=== PATIENT | male | born 1975 | race Two or more races ===

== ENCOUNTER 2017-02-26 17:29 | Emergency (ER) | payer SELFPAY ==
[~2017-02-26] VITALS: Ht 167.6 cm; Wt 90.7 kg
[2017-02-26] MEDS ORDERED: DIPHTH,PERTUSS(ACELL),TET TOX 0.5 ML DISP.SYRIN. VAX IM ONE (18:00)
[2017-02-26] MEDS ORDERED: MORPHINE SULFATE 4 MG/ML DISP.SYRIN. IV/SQ PRN (18:00)
[2017-02-26] MEDS ORDERED: LIDOCAINE 2% 20 ML VIAL. IJ ONE (18:15)
--- NOTE | 2017-02-26 19:00 | PHYS DOC ---
Past Medical History Past Medical History: No Pertinent History Past Surgical History: No Surgical History Alcohol Use: None Drug Use: None Adult General Chief Complaint Chief Complaint: LACERATION HPI HPI Patient is a 41 year old male brought to the ED by a friend with an injury to his left index finger. Patient is right-handed. Patient was working on a motor, which slipped and fell, smashed his left index finger causing a laceration. The patient states he can move and feel his finger. He states the pain is not too bad. He denies other injury. Patient does not speak [place], friend at the bedside speaks both Italian and [place] and translates. Review of Systems Review of Systems Constitutional: Denies fever or chills [] GI: Denies abdominal pain, nausea, vomiting, bloody stools or diarrhea [] Musculoskeletal: Denies other injury except left index finger Integument: Denies other injury Current Medications Current Medications Current Medications Medications (Trade) Dose Ordered Sig/Renetta Start Time Stop Time Status Last Admin Dose Admin Acetaminophen/ Hydrocodone Bitart (Lortab 5/325) 1 tab 1X ONCE 02/26/17 19:45 02/26/17 19:46 Cephalexin HCl (Keflex) 250 mg 1X ONCE 02/26/17 19:45 02/26/17 19:46 Diphtheria/ Tetanus/Acell Pertussis (Boostrix) 0.5 ml ONCE ONCE 02/26/17 18:00 02/26/17 18:01 DC 02/26/17 18:13 0.5 ML Ibuprofen (Motrin) 800 mg 1X ONCE 02/26/17 19:45 02/26/17 19:46 DC Lidocaine HCl 20 ml 1X ONCE 02/26/17 18:15 02/26/17 18:16 DC 02/26/17 18:15 20 ML Morphine Sulfate 4 mg PRN Q15MIN PRN 02/26/17 18:00 02/27/17 17:59 02/26/17 18:04 4 MG Neomycin/ Polymyxin/ Bacitracin (Triple Antibiotic Ointment) 1 pkt 1X ONCE 02/26/17 19:45 02/26/17 19:46 Allergies Allergies Allergies Coded Allergies Type Severity Reaction Last Updated Verified No Known Drug Allergies 02/26/17 No Physical Exam Physical Exam Constitutional: Well developed, well nourished, no acute distress, non-toxic appearance. Alert, ambulatory, mentating normally. HENT: Normocephalic, atraumatic, bilateral external ears normal, nose normal. [ ] Eyes: conjunctiva normal, no discharge. [] Neck: Normal range of motion, no stridor. [] Skin: Warm, dry, no erythema, no rash. [] Extremities: Left hand: There is a crush type laceration along the dorsal aspect of the left index finger from approximately the proximal aspect of the nailbed extending past the proximal aspect of the PIP. The patient is able to actively extend and actively flex his right index finger. He does have sensation to light touch and sharp of the fingertip. The finger is warm with capillary refill less than 2 seconds. Neurologic: Alert and oriented X 3, normal motor function, normal sensory function, no focal deficits noted. [] Current Patient Data Vital Signs Vital Signs Date Time Temp Pulse Resp B/P (MAP) Pulse Ox O2 Delivery O2 Flow Rate FiO2 02/26/17 19:16 64 136/60 (85) 98 Room Air 02/26/17 18:04 18 02/26/17 17:42 97.7 97.7 EKG EKG [] Radiology/Procedures Radiology/Procedures Left index finger x-rays read by me. No acute bony injury, no fracture or dislocation or foreign body seen. Procedure: Repair of left index finger laceration by me Lidocaine 2% plain was used to place a digital block. It was allowed to set up for 15-20 minutes. An additional small amount of lidocaine 2% plain was used to supplement areas that still had sensation. The laceration was irrigated with normal saline using a splash shield. A small amount of fabric debris was treated from the laceration using forceps, from the patient's gloves. The laceration was explored. It is a crush type laceration that is down to the flexor tendon, the flexor tendon is exposed, but does not appear to be injured. I was able to visualize a significant length of the flexor tendon in the base of the laceration and it does appear to be intact. The laceration was sutured with 10 simple interrupted sutures of 4-0 nylon. There were a couple of small areas where the skin had been peeled back and missing but for the most part I was able to approximate all of the tissue adequately. Good result was obtained. The laceration was dressed by nursing staff with antibiotic ointment, nonadherent dressing, and tube gauze. [] Course & Med Decision Making Course & Med Decision Making Pertinent Labs and Imaging studies reviewed. (See chart for details) 41-year-old male right-handed, presents with a crush type injury to his left index finger which has resulted in a laceration. X-rays negative for bony injury. Laceration was repaired and dressed. Patient was given a tetanus shot. We will start him on antibiotics because the laceration was somewhat dirty, he was fixing a car when this happened. See instructions for plan. Patient's friend who is here with him speaks [place] and reads [place] and will be able to help the patient with follow-up instructions. [] Dragon Disclaimer Dragon Disclaimer This electronic medical record was generated, in whole or in part, using a voice recognition dictation system. Departure Departure Impression: Primary Impression: Crushing injury of finger of left hand Additional Impression: Laceration of left index finger Disposition: 01 HOME, SELF-CARE Condition: STABLE Referrals: NO PCP (PCP) LEANDRO LAKHANI II, MD Patient Instructions: Laceration Care, Adult, [place] Additional Instructions: Leave the bandage on and keep it dry for 48 hours. You may then remove the bandage, wash gently, pat dry, and re-bandage with a gauze wrap. Elevate above the level of the heart which will help with pain and swelling. For pain, ibuprofen 800 mg every 8 hours around the clock. This is four over-the -counter 200 mg pills. If needed for more severe pain, hydrocodone as directed. It is okay to combine hydrocodone with ibuprofen. No driving while taking hydrocodone. It is an opiate. It will cause sedation and constipation. Keflex to prevent infection because the wound was dirty. Call on Monday for a recheck this week. I gave you the phone number of a specialist. Stitches need to be removed in about 14 days, they can do this for you. Scripts Hydrocodone/Apap 5-325 (NORCO 5-325 TABLET) 1 Each Tablet 1-2 TAB PO Q4-6HRS for PAIN, #20 TAB Prov: PAULETTE MCCLURE MD 02/26/17 Cephalexin (KEFLEX) 250 Mg Capsule 1 CAP PO QID for prevent infection, #28 CAP Prov: PAULETTE MCCLURE MD 02/26/17 Problem Qualifiers PAULETTE MCCLURE MD February 26, 2017 19:00
[2017-02-26] MEDS ORDERED: CEPH-263 PO (19:44)
[2017-02-26] MEDS ORDERED: HYDR-971 PO (19:44)
[2017-02-26] MEDS ORDERED: NEOMY/BACITR/POLYMYXIN OINT PACKET. TP ONE (19:45)
[2017-02-26] MEDS ORDERED: IBUPROFEN 800 MG TABLET. PO ONE (19:45)
[2017-02-26] MEDS ORDERED: HYDROcodone/APAP 5/325MG 1 TAB TABLET PO ONE (19:45)
[2017-02-26] MEDS ORDERED: CEPHALEXIN 250 MG CAPSULE. PO ONE (19:45)
[2017-02-26 19:59] VITALS: BP 138/83
--- NOTE | 2017-02-27 08:49 | RAD ---
Left index finger 3 views. History: Crush injury, laceration second digit 3 views were taken of the left index finger. There is soft tissue injury of the posterior aspect of the index finger. There is no fracture or osseous abnormality. Impression: 1. Soft tissue injury left index finger with swelling and irregularity of the soft tissues. 2. No acute fracture.
== END 2017-02-26 20:08 | disposition home or self-care (01) ==
LOC: ER 17:29
DX: S61.211A Laceration without foreign body of left index finger without damage to nail, initial encounter (principal); W01.0XXA Fall on same level from slipping, tripping and stumbling without subsequent striking against object, initial encounter; Y93.89 Activity, other specified; Y92.89 Other specified places as the place of occurrence of the external cause; Y99.8 Other external cause status
CPT/HCPCS: 12044; 73140; 90471; 90715; 96374; 99284; J2270